=== PATIENT | male | born 1970 | race American Indian/Alaskan Native ===

== ENCOUNTER 2016-10-31 11:17 | Emergency (ER) | payer OTHER ==
[2016-10-31 11:43] VITALS: RESP 16
[2016-10-31] MEDS ORDERED: Oxycodone/Acetaminophen 5/325 mg Tab PO STA (12:24)
--- NOTE | 2016-10-31 12:29 | C.PDOC ---
History Of Present Illness Patient is a 46 y/o M with 2 week history of R testicular swelling and pain. Denies penile discharge. Denies change in bowel or bladder habits. Time Seen by Provider: 10/31/16 12:01 Chief Complaint (Nursing): Groin Pain Past Medical History Vital Signs: Last Vital Signs Temp 98 F 10/31/16 11:42 Pulse 89 10/31/16 11:42 Resp 16 10/31/16 11:42 BP 164/95 H 10/31/16 12:13 Pulse Ox 98 10/31/16 14:03 - Medical History PMH: HTN Family History: States: No Known Family Hx - Social History Hx Alcohol Use: Yes Hx Substance Use: No - Immunization History Hx Tetanus Toxoid Vaccination: Yes Hx Influenza Vaccination: No Hx Pneumococcal Vaccination: No Review Of Systems Constitutional: Negative for: Fever, Chills Cardiovascular: Negative for: Chest Pain Respiratory: Negative for: Cough Gastrointestinal: Negative for: Nausea, Vomiting, Abdominal Pain, Diarrhea, Constipation Genitourinary: Positive for: Scrotal Pain. Negative for: Dysuria, Frequency, Incontinence, Penile Discharge, Rash, Penile Pain Skin: Negative for: Rash Neurological: Negative for: Weakness Psych: Negative for: Anxiety Physical Exam - Physical Exam Appears: Well, Non-toxic, No Acute Distress Skin: Normal Color, Warm, Dry Head: Atraumatic, Normacephalic Gastrointestinal/Abdominal: Soft, No Tenderness, No Mass, No Distention Male Genital: Circumcised (no penile discharge), Other (firm swelling to R testicle) ED Course And Treatment O2 Sat by Pulse Oximetry: 98 Medical Decision Making Medical Decision Making: Will give pain medication, get u/s to evaluate for flow, ua to r/o hematuria and infection and reevaluate 1:17PM Heterogeneous abnormal appearance of the right testes with innumerable heterogeneous masses worrisome for malignant neoplasm. No evidence of hypervascularity. Small right hydrocele. The right epididymis is not visualized. Correlate clinically 2:04PM Spoke to Dr. Waldron who will take patient to OR today. Patient NPO. Pre-op labs ordered. Disposition - Disposition Disposition: HOSPITALIZED Disposition Time: 14:04 Condition: FAIR - Clinical Impression Clinical Impression: Scrotal mass
[2016-10-31] MEDS ORDERED: Oxycodone/Acetaminophen 5/325 mg Tab ONE (12:32)
[2016-10-31 13:11] LABS: SQUAMOUS EPITHIAL 5 /hpf (0-5); URINE BACTERIA RARE (<OCC); URINE BILIRUBIN NEGATIVE (NEGATIVE); URINE BLOOD NEGATIVE (NEGATIVE); URINE CLARITY Clear (Clear); URINE COLOR Yellow (YELLOW); URINE GLUCOSE (UA) NORMAL (Normal); URINE LEUKOCYTE ESTERASE 3+ Leu/uL (Negative); URINE NITRATE NEGATIVE (NEGATIVE); URINE PROTEIN NEGATIVE (NEGATIVE)
--- NOTE | 2016-10-31 13:11 | US ---
HISTORY: R sided testicular swelling TECHNIQUE: Realtime sonography through the scrotum with color and doppler flow. COMPARISON: None Available. FINDINGS: RIGHT TESTICLE: Heterogeneous enlarged appearance with multiple heterogeneous probable masses throughout the testes. No evidence of hypervascularity. RIGHT EPIDIDYMIS: Not visualized. LEFT TESTICLE: Measures 5.6 x 2.5 x 3.3 cm. Homogeneous echotexture. Blood flow is demonstrated. LEFT EPIDIDYMIS: Measures approximately 0.8 x 1.1 x 1.3 cm. HYDROCELE: Small right-sided hydrocele. VARICOCELE: None. OTHER FINDINGS: None. IMPRESSION: Heterogeneous abnormal appearance of the right testes with innumerable heterogeneous masses worrisome for malignant neoplasm. No evidence of hypervascularity. Small right hydrocele. The right epididymis is not visualized. Correlate clinically.
[2016-10-31 14:25] LABS: BASO % 0.5 % (0.0-2.0); EOS # 0.2 K/uL (0.0-0.7); EOS % 4.1 % (0.0-4.0); HEMOGLOBIN 13.5 g/dL (12.0-18.0); LYMPH # 1.5 K/uL (1.0-4.3); LYMPH % 25.8 % (20.0-40.0); MEAN CELL VOLUME 88.1 fL (80.0-94.0); MEAN CORPUSCULAR HEMOGLOBIN 28.5 pg (27.0-31.0); MEAN CORPUSCULAR HGB CONC 32.3 g/dL (33.0-37.0); MEAN PLATELET VOLUME 9.6 fL (7.2-11.7); MONO # 0.5 K/uL (0.0-0.8); MONO % 8.6 % (0.0-10.0); NEUT # 3.6 K/uL (1.8-7.0); NRBC % 0.1 % (0.0-2.0); RBC 4.75 Mil/uL (4.40-5.90); RED CELL DISTRIBUTION WIDTH 11.9 % (11.5-14.5); WHITE BLOOD COUNT 5.9 K/uL (4.8-10.8)
[2016-10-31 14:31] LABS: ALBUMIN 3.8 g/dL (3.5-5.0)
[2016-10-31 14:34] LABS: GFR AFRICAN-AMERICAN > 60; GFR NON-AFRICAN AMERICAN > 60
[2016-10-31 14:35] LABS: ALB/GLOB RATIO 1.1 (1.0-2.1); ALT/SGPT 40 U/L (21-72); AST/SGOT 27 U/L (17-59); BLOOD UREA NITROGEN 14 mg/dL (9-20); CALCIUM 7.9 mg/dl (8.6-10.4)
[2016-10-31 15:07] VITALS: BP 188/123; PULSE 75; TEMP 98.4; O2SAT 99
--- NOTE | 2016-10-31 16:51 | C.PDOC ---
Time Seen by Provider: 10/31/16 12:01 Chief Complaint (Nursing): Groin Pain Past Medical History Vital Signs: Last Vital Signs Temp 98.4 F 10/31/16 15:00 Pulse 75 10/31/16 15:00 Resp 16 10/31/16 15:00 BP 188/123 H 10/31/16 15:00 Pulse Ox 99 10/31/16 15:00 - Medical History PMH: HTN Family History: States: No Known Family Hx - Social History Hx Alcohol Use: Yes Hx Substance Use: No - Immunization History Hx Tetanus Toxoid Vaccination: Yes Hx Influenza Vaccination: No Hx Pneumococcal Vaccination: No ED Course And Treatment - Laboratory Results Result Diagrams: 10/31/16 14:17 10/31/16 14:17 O2 Sat by Pulse Oximetry: 99 Disposition - Disposition Disposition: AGAINST MEDICAL ADVICE Condition: FAIR Additional Instructions: YOU LIKELY HAVE TESTICULAR CANCER. RETURN IMMEDIATELY IF YOU AGREE TO RESECTION OR WANT FURTHER TREATMENT - Clinical Impression Clinical Impression: Scrotal mass
== END 2016-10-31 15:39 | disposition left against medical advice (07) ==
LOC: C.ER 11:17
DX: N50.89 Other specified disorders of the male genital organs (principal)

== ENCOUNTER 2016-11-01 06:50 | Day surgery (SDC) | payer OTHER ==
--- NOTE | 2016-11-01 07:07 | C.PDOC ---
Time Seen by Provider: 11/01/16 07:02 Chief Complaint (Nursing): Medical Clearance Past Medical History Vital Signs: Last Vital Signs Temp 98 F 11/01/16 06:54 Pulse 81 11/01/16 06:54 Resp 14 11/01/16 06:54 BP 165/92 H 11/01/16 06:54 Pulse Ox 98 11/01/16 06:54 - Medical History PMH: HTN - Social History Hx Alcohol Use: Yes Hx Substance Use: No - Immunization History Hx Tetanus Toxoid Vaccination: Yes Hx Influenza Vaccination: No Hx Pneumococcal Vaccination: No ED Course And Treatment O2 Sat by Pulse Oximetry: 98
--- NOTE | 2016-11-01 07:09 | C.PDOC ---
History Of Present Illness 46 yo male presents to the ED c/o right scrotal mass for more than 2 years and now having pain for 2 weeks. He came to the ED yesterday but at that time did not want to get the surgery. He was advised by Dr. Waldron to come back to the ED and he decided to come back today. No penile pain or discharge. Pain of testicle has not changed in nature since last hospital visit. No trauma. Last meal at 12 midnight. PMD: Dr. Han Hair. Time Seen by Provider: 11/01/16 07:02 Chief Complaint (Nursing): Medical Clearance Past Medical History Vital Signs: Last Vital Signs Temp 98 F 11/01/16 06:54 Pulse 81 11/01/16 06:54 Resp 14 11/01/16 06:54 BP 165/92 H 11/01/16 06:54 Pulse Ox 98 11/01/16 07:19 - Medical History PMH: HTN Family History: States: No Known Family Hx - Social History Hx Alcohol Use: Yes Hx Substance Use: No - Immunization History Hx Tetanus Toxoid Vaccination: Yes Hx Influenza Vaccination: No Hx Pneumococcal Vaccination: No Review Of Systems Except As Marked, All Systems Reviewed And Found Negative. Genitourinary: Positive for: Scrotal Pain. Negative for: Dysuria, Frequency, Hematuria, Penile Discharge, Penile Pain Physical Exam - Physical Exam Appears: Well, No Acute Distress Skin: Normal Color, Warm, Dry Eye(s): bilateral: Normal Inspection, PERRL, EOMI Nose: Normal Throat: Normal Neck: Normal Cardiovascular: Rhythm Regular Respiratory: Normal Breath Sounds Gastrointestinal/Abdominal: Normal Exam Back: Normal Inspection Male Genital: Testicular Tenderness (right), Testicular Swelling (right), Scrotal Swelling (right scrotal swelling with noted mass), Circumcised Extremity: Normal ROM Neurological/Psych: Oriented x3 ED Course And Treatment O2 Sat by Pulse Oximetry: 98 Medical Decision Making Medical Decision Makin yo male with right scrotal mass with swelling and tenderness presents for removal of mass -- Dr. Waldron called and is taking patient to the OR. He ordered blood work. -- Reviewed records from visit yesterday. Burto reviewed. Disposition - Disposition Disposition: HOSPITALIZED Disposition Time: 07:22 Condition: FAIR - POA Present On Arrival: None - Clinical Impression Clinical Impression: Scrotal mass
[2016-11-01] MEDS ORDERED: Bacitracin Ointment 30 GM TUBE ONE (07:28)
[2016-11-01] MEDS ORDERED: ceFAZolin IV 2 gm in Dextrose 1 GM/50 ML BAG IVPB ONE (07:28)
[2016-11-01] MEDS ORDERED: Midazolam 2 MG/2 ML VIAL ONE (07:44)
[2016-11-01] MEDS ORDERED: Propofol 10 mg/ml Inj (20 ML) ONE (07:45)
[2016-11-01] MEDS ORDERED: Lactated Ringer's 1,000 ML IV ONE (07:46)
[2016-11-01] MEDS ORDERED: Rocuronium 10 mg/ml (5 ml) ONE (08:22)
[2016-11-01] MEDS ORDERED: Metoprolol 1 mg/ml Inj IVP ONE (08:22)
[2016-11-01] MEDS ORDERED: Succinylcholine Chloride 20 mg/ml Syr (5 ml) IV ONE (08:22)
[2016-11-01] MEDS ORDERED: HYDROmorphone 0.5 mg/0.5 ml ISec IVP PRN (08:23)
[2016-11-01] MEDS ORDERED: Bupivacaine 0.5% Inj(30mL) ONE (08:28)
[2016-11-01] MEDS ORDERED: Lactated Ringer's 1,000 ML IV SCH (08:30)
[2016-11-01] MEDS ORDERED: Labetalol 25mg/5ml Syringe IVP PRN (08:56)
[2016-11-01 11:56] VITALS: BP 174/94; PULSE 67; RESP 18; TEMP 97; O2SAT 97
--- NOTE | 2016-11-15 05:57 | OP ---
PROCEDURE DATE: PREOPERATIVE DIAGNOSES: Right scrotal mass, right scrotal pain and a solid mass. 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 PROCEDURE: Right inguinal exploration and a right radical orchiectomy. ESTIMATED BLOOD LOSS: Less than 10 mL. DRAINS: No drains. COMPLICATIONS: There were no complications. The patient left the operating room in stable condition with tight bandage in his right groin. SPECIMENS: Testicle and the cord contents that we traced up as far as we could. INDICATIONS: See history and physical for further details: A very pleasant gentleman, very noncompliant. He has previously been recommended while he was incarcerated having orchiectomy. He came in with scrotal pain. He saw another urologist, who referred him last and he returned to me. We discussed the options while we were working on as quickly as possible getting authorizations and approval, but not to delay the patient at all. He ended up coming into the emergency room with pain. Given the whole history and his noncompliant and non followup and my concern is that this is a malignancy not really an epididymitis and now that we have done the procedure, I am more convinced of this. We brought the patient in a relative emergency/urgent procedure given the fact that it turns malignancy. I explained to the patient I monalisa him pictures explaining to him about the testicle, about lymph node drainage, various discussions ensued and he to the above procedure. In preparation actually for today's procedure, I also reviewed the surgical outlet of this and anatomy in preparation for today's procedure. The procedure begins in the following fashion. DESCRIPTION OF PROCEDURE: The patient was brought to the operating room, placed on a table, routine monitors were placed. Time out was called. We identified our landmarks, the pubic tubercle that is because the patient has somewhat of interesting body habitus. a little bit difficult. I made an incision that was a little bit wider than usual given the size of the testicular mass. First, I made a smaller transverse incision and then took this on a little further and deeper and then lengthen the original incision to make sure that I will be able to deliver the scrotal contents. See the further details in of the procedure itself. After discussing the options, risks, benefits and alternatives with the patient. He brought for the urgent procedure. The patient was placed on the table in supine position. A routine monitor was placed. Time-out was called to confirm the patient's positioning, etc. The patient was given antibiotic prophylaxis. I used actually a marking pen and in the right groin, we made a transverse incision. After dissecting down to the underlying fat fascia. Identifying nerve and isolating it as best as possible. We then were able to identify the spermatic cord. I placed a [place] drain wrapped twice around. I tried to manipulate the testicle out from below. It was somewhat difficult. It was somewhat adherent and was difficult to dislodge. So at this point, I extended the incision a little bit medially and laterally. Now I was able to deliver the entire scrotal contents and feel the testicle. Again, this was a very solid testicular mass. It does not appear to be involving the epididymis at all. This seems to be separate. At this point, we checked the scrotal contents. We had freed it off very well with the scrotum and the skin itself was not violated in any way shape or form. We now delivered the testicle in the following fashion. We used the clamp-clamp technique and transected the testicle. We provided suture ligatures around the testicular artery. We used 0 silk with a suture ligature. We transected the cord. Multi ties were used. We traced the cord up as best as we can towards the inguinal ring as best as possible and then we actually left one of the sutures long. In case, in the future, if the patient will need further retroperitoneal lymphadenectomy to be able to identify the edge of the cord from below. We now inspected carefully. There was no bleeding noted. I do want to mention that we had provided some Marcaine as well for postop analgesia. We now inspected the wound, we irrigated copiously. There was no bleeding noted. We actually kyle the scrotum and the scrotal wall was grossly intact. There was no bleeding along the skin wall. Anything that we cauterized gently and carefully. At this point, we began our closure. We reapproximated the external oblique. The fascia was closed with and we closed the subcu and we closed the skin with sher. We applied dry sterile dressing with a little compression. Overall, the patient tolerated without complications. ADDENDUM: This is about two weeks that we did the procedure. I recall something distinctly in my mind as I am dictating particularly about the skin about violating the skin about the explanation to the patient, but I may need hospital computer and signing records and this dictation is requested. Overall, the patient tolerated the procedure well. 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 The final tumor markers alpha-fetoprotein and HCG are all negative. Since the time of the initial procedure, I have exactly seen the patient twice in the office. He is overall doing clinically well with minimal pain. Actually at this point we leave him in sher. Wilber Waldron MD
--- NOTE | 2016-11-15 05:58 | HP ---
REASON FOR ADMISSION: Right orchiectomy. HISTORY OF PRESENT ILLNESS: Mr. Patrick is a very pleasant, but somewhat noncompliant gentleman who initially presented while he was actually incarcerated with a scrotal mass. According to his report, at that time they had recommended a radical orchiectomy for cancer, but he refused treatment at that point from the [facility] while he was incarcerated. On of last week, he saw Dr. Acevedo, urologist, who referred him to me. I saw him on Monday and we made the recommendations of similar vain. In the interim, the patient actually presented to the ER under various circumstances. Now, when he came to Dr. Acevedo, he was complaining of scrotal pain, we were aware of the mass. When he was referred to me, we were then planning for an orchiectomy. However, the patient was also having severe pain. In the past, I believe he had an epididymitis overlying the scrotal mass, which was suspicious for malignancy. I spent a long time in the office with the patient and his /fiancee for our recommendations. In meantime, the patient now presented to the emergency room with severe scrotal pain. He had presented previously. Given that history, the patient now will be admitted as an emergency admission for an inguinal exploration and an orchiectomy. still low, but specifically, he is very pleasant about the matter, but he is extremely noncompliant. He has been recommended to have an orchiectomy for quite sometime from the time of his incarceration until now. He is aware of his mass and despite that he has not got treated and now it has add on to that, so even if the possibility for an epididymitis exists, might be there is concern for cancer. See the addendum at the end of the note because after having done the procedure, I believe it is just a mass and actually the epididymis looks normal. See the addendum and the operative report separately dictated. PAST MEDICAL AND SURGICAL HISTORY: Negative for OR, CVA. SOCIAL HISTORY: Again as mentioned above, he has briefly been incarcerated. He is currently with [facility]. He comes to the office with a fiancee/. I had an opportunity to talk to the patient and the /fiancee over the weekend with various questions and concerns. I think just on a social note his biggest concern is that he has a tremendous amount of fear of surgery and also removal of testicle. is low because our plan for today are definitely to do an inguinal exploration and a radical orchiectomy. REVIEW OF SYSTEMS: No weight loss, chest pain, or shortness of breath. . No night sweats. No constitutional complaints. PHYSICAL EXAMINATION: GENERAL: A well-nourished male. His body habitus noted. NECK: It is difficult to feel that there does not appear to be any cervical adenopathy or axillary lymphadenopathy. No external lymphadenopathy. ABDOMEN: Normal bowels. GENITOURINARY: His left hemiscrotum is within normal limits. His right hemiscrotum, there is just enlarged mass that is solid to feel, which does not transilluminate light. I believe there is no report on ultrasound, where there may be somewhat of a hydrocele. Questionable also this is solid testicular mass. Just going to evaluate whether there is any epididymis pain or epididymal involvement. LABORATORY DATA: See chart. What is pending is an alpha-fetoprotein and a beta HCG are pending. LDH pending. DIAGNOSIS: Right scrotal mass. We discussed options at length. This is a very pleasant gentleman, who is a young pleasant gentleman and he is a little bit older for a malignancy age. This definitely is concerning for a testicular cancer. Based on ultrasound and based on his history, the patient has been recommended for an orchiectomy. At this point given his noncompliance, very pleasant about the matter, but I cannot account on him to return, I am bringing him in as an emergency. We are going to straight to the OR. We will give antibiotic prophylaxis. The plan is as follows: We are going to bring the patient. The incision will be right groin. I explained to the patient about violating the scrotal skin in terms of epididymal cancer, in terms of lymph node drainage. I monalisa him some pictures to explain to him the necessary to explore through the groin. After discussing all those options with the patient, the plan is as follows: 1. An inguinal exploration. 2. A right radical orchiectomy and then further plan will follow depending on clinically. All was explained to the patient. the operative report, it is a certainly a tumor. As mentioned previously, tumor markers are pending, alpha-fetoprotein, beta HCG, etc. We will await to see the final pathology. But I do not believe that this is epididymitis. The patient will be given skin antibiotic prophylaxis for the procedure. Outpatient treatment with Keflex and the like. Wilber Waldron MD
== END 2016-11-01 11:59 | disposition home or self-care (01) ==
LOC: C.ER 06:50 → C.SDS 07:20
PROVIDERS: ATTEND Urology
DX: C62.91 Malignant neoplasm of right testis, unspecified whether descended or undescended (principal); I10 Essential (primary) hypertension
CPT/HCPCS: 54530; 82105; 82948; 84702; 88309; 99285; J0690; J2001; J2250; J2405; J2704; J3010; J7120

== ENCOUNTER 2017-09-16 11:07 | Emergency (ER) | payer MEDICAID, OTHER ==
[2017-09-16 11:15] VITALS: PULSE 90; RESP 20; TEMP 98.9; O2SAT 99
--- NOTE | 2017-09-16 11:19 | C.PDOC ---
History Of Present Illness 47-year-old male, presents to the emergency department with complaints of non- traumatic pain to his right knee since yesterday. Patient reports he fractured the knee about twenty years ago, and ever since, he has frequent episodes of swelling and pain to the area. He has not taken any medication for the pain, and denies any new trauma. Additionally, patient has a Hx of hypertension that is poorly controlled. He took one dose of his Hydrochlorothiazide while walking into the ED, but forgot other medications at home. He denies any new trauma, headache, dizziness, nausea/vomiting, numbness/weakness, or any other associated symptoms. No other complaints at this time. Time Seen by Provider: 09/16/17 11:16 Chief Complaint (Nursing): Lower Extremity Problem/Injury History Per: Patient History/Exam Limitations: no limitations Onset/Duration Of Symptoms: Days (2) Current Symptoms Are (Timing): Still Present Severity: Moderate - Knee Currently Unable To: Bear Weight Past Medical History Reviewed: Historical Data, Nursing Documentation, Vital Signs Vital Signs: Last Vital Signs Temp 98.9 F 09/16/17 11:14 Pulse 90 09/16/17 11:14 Resp 20 09/16/17 11:14 BP 180/128 H 09/16/17 11:48 Pulse Ox 99 09/16/17 12:25 - Medical History PMH: HTN Family History: States: No Known Family Hx - Social History Hx Alcohol Use: Yes Hx Substance Use: Yes - Immunization History Hx Tetanus Toxoid Vaccination: Yes Hx Influenza Vaccination: No Hx Pneumococcal Vaccination: No Review Of Systems Constitutional: Negative for: Fever, Chills Cardiovascular: Negative for: Chest Pain Respiratory: Negative for: Shortness of Breath Gastrointestinal: Negative for: Vomiting Musculoskeletal: Positive for: Other (right knee pain and swelling) Neurological: Negative for: Weakness, Numbness, Headache, Dizziness Physical Exam - Physical Exam Appears: Non-toxic, No Acute Distress Skin: Normal Color, Warm, Dry, No Rash Head: Normacephalic Eye(s): bilateral: Normal Inspection, PERRL Nose: Normal Oral Mucosa: Moist Lips: Normal Appearing Neck: Normal ROM Cardiovascular: Rhythm Regular, No Murmur Respiratory: Normal Breath Sounds, No Accessory Muscle Use Extremity: Tenderness, No Deformity, Swelling (R knee. No erythema, no warmth. ) Pulses: Left Dorsalis Pedis: Normal, Right Dorsalis Pedis: Normal Neurological/Psych: Oriented x3, Normal Speech ED Course And Treatment O2 Sat by Pulse Oximetry: 99 (RA) Pulse Ox Interpretation: Normal - Other Rad XR KNEE X-Ray: Viewed By Me, Read By Radiologist Interpretation: Accession No. : [id number]. Patient Name / ID : KASHIF BURROUGHS / [id number]. Exam Date : 09/16/2017 11:18:58 ( Approved ). Study Comment : Sex / Age : M / 47Y. Creator : Tate Fonseca MD. Dictator : Tate Fonseca MD. Regulatory Affairs Coordinator : Liquor Department Manager : Tate Fonseca MD. Approver2 : Report Date : 09/16/2017 11:48:38. My Comment : . Right knee three views. History: Knee pain. Comparison: None available. Findings: Large suprapatellar joint effusion with associated hemarthrosis. Vertical and rounded radiopaque opacities seen within the posterior aspect of the femorotibial joint space which may represent small avulsion fracture fragments. Clinical correlation. Bony productive change with rounded ossific density posterior to the posterior patella, nonspecific. Subtle osseous injury at this level cannot be excluded. In addition, on the frontal view, there is a questionable lucency through the medial aspect of the patella which may represent osseous injury. Clinical correlation. Correlation with bony CT may be helpful if clinically indicated. If pain persists, correlation with MRI may be helpful if clinically indicated to evaluate for internal derangement. Impression: Large suprapatellar joint effusion with associated hemarthrosis. Vertical and rounded radiopaque opacities seen within the posterior aspect of the femorotibial joint space which may represent small avulsion fracture fragments. Clinical correlation. Bony productive change with rounded ossific density posterior to the posterior patella, nonspecific. Subtle osseous injury at this level cannot be excluded. In addition, on the frontal view, there is a questionable lucency through the medial aspect of the patella which may represent osseous injury. Clinical correlation. Correlation with bony CT may be helpful if clinically indicated. If pain persists, correlation with MRI may be helpful if clinically indicated to evaluate for internal derangement. Progress Note: Plan: Right knee Xray. Tylenol PO. Reassess and Disposition Medical Decision Making Medical Decision Making: Leaving Against Medical Advice (AMA): This patient is choosing to leave against medical advice. I have personally explained to the pt that choosing to do so may result in permanent bodily harm or . I have discussed at great length that without further evaluation and monitoring there may be unforeseen circumstances and/or deterioration causing permanent bodily harm or as a result of their choice. The pt verbalized these risks back to the physician in laymans terms. The pt is alert, oriented, and shows the mental capacity to make clear decisions regarding the pts health care at this time. The pt continues to wish to leave against medical advice. In light of the pts decision to leave AMA, follow-up has been arranged and the pt is aware of the importance of following up as instructed. The pt has been advised that they should return to the ED immediately if they change their mind at any time, or if their condition begins to change or worsen in any way. Disposition Counseled Patient/Family Regarding: Studies Performed, Diagnosis, Need For Followup, Rx Given - Disposition Referrals: Flor Bailon MD [Staff Provider] - [facility] [Outside] [facility] [Outside] Disposition: AGAINST MEDICAL ADVICE Disposition Time: 11:46 Condition: FAIR Additional Instructions: YOUR BLOOD PRESSURE IS HIGH AND YOU ARE LEAVING HOSPITAL AGAINST MEDICAL ADVISE. FOLLOW UP WITH YOUR PMD /CLINIC ON MONDAY FOR RE-EVALUATION OF HIGH BLOOD PRESSURE. PLEASE TAKE ALL YOUR BLOOD PRESSURE MEDICATIONS FOLLOW UP WITH [facility] ON MONDAY FOR RE-EVALUATION. IF SYMPTOMS GET WORSE OR ANY NEW CONCERNING SYMPTOMS DEVELOP RETURN TO ED. Prescriptions: Ibuprofen [Motrin Tab] 1 tab PO Q6H PRN #15 tab PRN Reason: Pain, Moderate (4-7) Instructions: Tendonitis, High Blood Pressure (DC) Forms: [facility] ([place]), General Discharge Instructions - Clinical Impression Clinical Impression: Knee effusion, right, Hypertension - Scribe Statement The provider has reviewed the documentation as recorded by the Scribe (Paola Bailon) All medical record entries made by the Scribe were at my direction and personally dictated by me. I have reviewed the chart and agree that the record accurately reflects my personal performance of the history, physical exam, medical decision making, and the department course for this patient. I have also personally directed, reviewed, and agree with the discharge instructions and disposition.
[2017-09-16 11:48] VITALS: BP 180/128
--- NOTE | 2017-09-16 11:50 | RAD ---
Right knee three views History: Knee pain. Comparison: None available. Findings: Large suprapatellar joint effusion with associated hemarthrosis. Vertical and rounded radiopaque opacities seen within the posterior aspect of the femorotibial joint space which may represent small avulsion fracture fragments. Clinical correlation. Bony productive change with rounded ossific density posterior to the posterior patella, nonspecific. Subtle osseous injury at this level cannot be excluded. In addition, on the frontal view, there is a questionable lucency through the medial aspect of the patella which may represent osseous injury. Clinical correlation. Correlation with bony CT may be helpful if clinically indicated. If pain persists, correlation with MRI may be helpful if clinically indicated to evaluate for internal derangement. Impression: Large suprapatellar joint effusion with associated hemarthrosis. Vertical and rounded radiopaque opacities seen within the posterior aspect of the femorotibial joint space which may represent small avulsion fracture fragments. Clinical correlation. Bony productive change with rounded ossific density posterior to the posterior patella, nonspecific. Subtle osseous injury at this level cannot be excluded. In addition, on the frontal view, there is a questionable lucency through the medial aspect of the patella which may represent osseous injury. Clinical correlation. Correlation with bony CT may be helpful if clinically indicated. If pain persists, correlation with MRI may be helpful if clinically indicated to evaluate for internal derangement.
== END 2017-09-16 12:12 | disposition left against medical advice (07) ==
LOC: C.ER 11:07
DX: M25.461 Effusion, right knee (principal); I10 Essential (primary) hypertension